=== PATIENT | male | born 1965 | race Caucasian/White ===

== ENCOUNTER 2020-08-28 09:02 | Outpatient (REF) | payer OTHER, SELFPAY ==
[2020-08-28 11:52] LABS: Alanine Aminotransferase 41 U/L (0-40); Albumin Level 4.6 g/dL (3.5-5.0); Alkaline Phosphatase 85 U/L (39-117); Anion Gap 13 (12-20); Aspartate Amino Transferase 29 U/L (5-37); Bilirubin Total 0.3 mg/dL (0.0-1.0); Blood Urea Nitrogen 16 mg/dL (9-16); Calcium 9.9 mg/dL (8.4-10.2); Carbon Dioxide 33 mmol/L (22-29); Chloride 99 mmol/L (96-108); Cholesterol 230 mg/dL; Estimated Glomerular Filt Rate > 60; Glucose Fasting 100 mg/dL (60-99); HDL Cholesterol 42 mg/dL; LDL Cholesterol Calculated 132 mg/dl; Potassium 5.4 mmol/l (3.3-5.1); Sodium 140 mmol/L (135-145); Total Protein 7.9 g/dL (6.5-8.0); Triglycerides 282 mg/dL
== END 2020-08-28 09:03 | disposition home or self-care (01) ==
LOC: HO.LAB 09:02
PROVIDERS: PCP Internal Medicine; Visit Provider Internal Medicine
DX: E78.00 Pure hypercholesterolemia, unspecified (principal)
CPT/HCPCS: 36415; 80053; 80061

== ENCOUNTER 2020-08-29 10:08 | Outpatient (REF) | payer OTHER, SELFPAY | END 2020-08-29 10:09 | disposition home or self-care (01) | LOC: HO.LAB 10:08 | PROVIDERS: PCP Internal Medicine; Visit Provider Internal Medicine | DX: Z20.828 Contact with and (suspected) exposure to other viral communicable diseases (principal) | CPT/HCPCS: 36415; 87635 ==

== ENCOUNTER 2020-11-27 12:09 | Outpatient (REF) | payer OTHER, SELFPAY ==
[2020-11-27 13:12] LABS: MANUAL DIFF FLAG NO
[2020-11-27 13:14] LABS: Basophils Percent Auto 0.4 % (0-2); Eosinophils Absolute Auto 0.1 X10*3/uL (0.0-0.4); Eosinophils Percent Auto 0.5 % (0-4); Hematocrit 45.1 % (42-52); Hemoglobin 14.8 g/dl (14.0-18.0); Imm Gran Abs Auto 0.05 X10*3/uL (0.00-0.03); Imm Gran Pct Auto 0.5 % (0.0-0.4); Lymphocytes Absolute Auto 3.6 X10*3/uL (1.2-4.9); Lymphocytes Percent Auto 33.3 % (20-40); Mean Corpuscular HGB Conc 32.8 g/dl (31.0-36.0); Mean Corpuscular Hemoglobin 28.8 pg (27.0-33.0); Mean Corpuscular Volume 87.7 fL (80-98); Mean Platelet Volume 10.6 fL (9.4-12.4); Monocytes Absolute Auto 0.4 X10*3/uL (0.1-1.2); Monocytes Percent Auto 3.9 % (2-11); Neutrophils Absolute Auto 6.6 X10*3/uL (2.0-8.3); Neutrophils Percent Auto 61.4 % (45-73); Platelet Count 296 X10*3/uL (160-400); Red Blood Count 5.14 X10*6/uL (4.60-5.80); Red Cell Distribution Width 13.7 % (11.0-16.0); White Blood Count 10.8 X10*3/uL (4.8-10.8)
[2020-11-27 14:08] LABS: Alanine Aminotransferase 29 U/L (0-40); Albumin Level 4.5 g/dL (3.5-5.0); Alkaline Phosphatase 87 U/L (39-117); Anion Gap 17 (12-20); Aspartate Amino Transferase 25 U/L (5-37); Bilirubin Total 0.3 mg/dL (0.0-1.0); Blood Urea Nitrogen 18 mg/dL (9-16); Calcium 10.2 mg/dL (8.4-10.2); Carbon Dioxide 31 mmol/L (22-29); Chloride 101 mmol/L (96-108); Cholesterol 249 mg/dL; Estimated Glomerular Filt Rate > 60; Glucose Fasting 89 mg/dL (60-99); HDL Cholesterol 44 mg/dL; LDL Cholesterol Calculated 157 mg/dl; Potassium 5.7 mmol/l (3.3-5.1); Sodium 143 mmol/L (135-145); Triglycerides 244 mg/dL
== END 2020-11-27 12:10 | disposition home or self-care (01) ==
LOC: HO.LAB 12:09
PROVIDERS: PCP Internal Medicine; Visit Provider Internal Medicine
DX: R56.9 Unspecified convulsions (principal); E78.5 Hyperlipidemia, unspecified
CPT/HCPCS: 36415; 80053; 80061; 85025

== ENCOUNTER 2021-03-05 09:38 | Outpatient (REF) | payer OTHER, SELFPAY ==
--- NOTE | 2021-03-05 09:52 | ECG_ITS ---
Test Reason : HYPERKALEMIA Blood Pressure : / mmHG Vent. Rate : 086 BPM Atrial Rate : 086 BPM P-R Int : 148 ms QRS Dur : 112 ms QT Int : 380 ms P-R-T Axes : 068 033 084 degrees QTc Int : 454 ms Normal sinus rhythm Nonspecific ST and T wave abnormality Borderline ECG No significant changes when compared with the previous EKG of 14 march 2020 Referred By: Shirley Ferrara Electronically Signed By:CARMEN YUSUF
[2021-03-05 11:25] LABS: Alanine Aminotransferase 107 U/L (0-40); Albumin Level 4.2 g/dL (3.5-5.0); Alkaline Phosphatase 74 U/L (39-117); Anion Gap 15 (12-20); Aspartate Amino Transferase 69 U/L (5-37); Bilirubin Total 0.4 mg/dL (0.0-1.0); Blood Urea Nitrogen 16 mg/dL (9-16); Calcium 9.6 mg/dL (8.4-10.2); Carbon Dioxide 29 mmol/L (22-29); Chloride 101 mmol/L (96-108); Cholesterol 238 mg/dL; Estimated Glomerular Filt Rate > 60; Glucose Fasting 93 mg/dL (60-99); HDL Cholesterol 51 mg/dL; LDL Cholesterol Calculated 134 mg/dl; Potassium 5.3 mmol/L (3.3-5.1); Sodium 140 mmol/L (135-145); Total Protein 7.3 g/dL (6.5-8.0); Triglycerides 269 mg/dL
== END 2021-03-05 09:39 | disposition home or self-care (01) ==
LOC: HO.LAB 09:38
PROVIDERS: PCP Internal Medicine; Visit Provider Internal Medicine
DX: E87.5 Hyperkalemia (principal); E78.5 Hyperlipidemia, unspecified
CPT/HCPCS: 36415; 80053; 80061; 93005

== ENCOUNTER 2021-03-13 10:58 | Outpatient (REF) | payer OTHER, SELFPAY ==
[2021-03-13 12:00] LABS: MANUAL DIFF FLAG NO
[2021-03-13 12:04] LABS: Basophils Absolute Auto 0.1 X10*3/uL (0.0-0.2); Basophils Percent Auto 0.6 % (0-2); Eosinophils Absolute Auto 0.1 X10*3/uL (0.0-0.4); Eosinophils Percent Auto 0.6 % (0-4); Hematocrit 45.3 % (42-52); Hemoglobin 15.1 g/dl (14.0-18.0); Imm Gran Abs Auto 0.05 X10*3/uL (0.00-0.03); Imm Gran Pct Auto 0.6 % (0.0-0.4); Lymphocytes Percent Auto 37.1 % (20-40); Mean Corpuscular HGB Conc 33.3 g/dl (31.0-36.0); Mean Corpuscular Hemoglobin 29.3 pg (27.0-33.0); Mean Platelet Volume 9.7 fL (9.4-12.4); Monocytes Absolute Auto 0.4 X10*3/uL (0.1-1.2); Monocytes Percent Auto 4.7 % (2-11); Neutrophils Absolute Auto 4.5 X10*3/uL (2.0-8.3); Neutrophils Percent Auto 56.4 % (45-73); Platelet Count 295 X10*3/uL (160-400); Red Blood Count 5.15 X10*6/uL (4.60-5.80); Red Cell Distribution Width 12.7 % (11.0-16.0)
[2021-03-13 12:45] LABS: Alanine Aminotransferase 104 U/L (0-40); Albumin Level 4.6 g/dL (3.5-5.0); Alkaline Phosphatase 86 U/L (39-117); Anion Gap 15 (12-20); Aspartate Amino Transferase 51 U/L (5-37); Bilirubin Total 0.5 mg/dL (0.0-1.0); Blood Urea Nitrogen 18 mg/dL (9-16); Calcium 10.4 mg/dL (8.4-10.2); Carbon Dioxide 28 mmol/L (22-29); Chloride 100 mmol/L (96-108); Estimated Glomerular Filt Rate > 60; Glucose Random 107 mg/dL (60-115); Sodium 138 mmol/L (135-145); Total Protein 7.9 g/dL (6.5-8.0)
[2021-03-13 12:56] LABS: Valproate 34.5 mcg/mL (50.0-100.0)
== END 2021-03-13 10:59 | disposition home or self-care (01) ==
LOC: HO.LAB 10:58
PROVIDERS: PCP Internal Medicine; Visit Provider Nurse Practitioner Psychiatric/Mental Health
DX: R94.31 Abnormal electrocardiogram [ECG] [EKG] (principal)
CPT/HCPCS: 36415; 80053; 80164; 85025

== ENCOUNTER → 2021-11-06 10:05 | Outpatient (REF) | payer OTHER, SELFPAY ==
--- NOTE | 2021-11-06 10:13 | ECG_ITS ---
Test Reason : chest pain Blood Pressure : / mmHG Vent. Rate : 087 BPM Atrial Rate : 087 BPM P-R Int : 136 ms QRS Dur : 114 ms QT Int : 382 ms P-R-T Axes : 055 038 089 degrees QTc Int : 459 ms Normal sinus rhythm Nonspecific T wave abnormality Abnormal ECG When compared with ECG of 05-MAR-2021 09:57, No significant change was found Referred By: Shirley Ferrara Electronically Signed By:GISELA JIMENEZ MD
[2021-11-06 11:03] LABS: Alanine Aminotransferase 66 U/L (0-40); Albumin Level 4.5 g/dL (3.5-5.0); Alkaline Phosphatase 90 U/L (39-117); Anion Gap 15 (12-20); Aspartate Amino Transferase 45 U/L (5-37); Bilirubin Total 0.5 mg/dL (0.0-1.0); Blood Urea Nitrogen 20 mg/dL (9-16); Calcium 9.9 mg/dL (8.4-10.2); Carbon Dioxide 26 mmol/L (22-29); Chloride 103 mmol/L (96-108); Cholesterol 225 mg/dL; Estimated Glomerular Filt Rate > 60; Glucose Fasting 110 mg/dL (60-99); HDL Cholesterol 41 mg/dL; LDL Cholesterol Calculated 138 mg/dl; Potassium 4.1 mmol/L (3.3-5.1); Sodium 140 mmol/L (135-145); Total Protein 7.8 g/dL (6.5-8.0); Triglycerides 231 mg/dL
[2021-11-06 11:17] LABS: Valproate < 2.0 mcg/mL (50.0-100.0)
[2021-11-06 11:21] LABS: HBS Num1 5.32 mIU/mL (0-7.99); HBc Num1 0.07 S/CO (0.00-0.79); HBsAGNum1 0.22 S/CO (0.00-0.99); Hepatitis B Core Antibody Nonreactive (Nonreactive); Hepatitis B Surface Antigen Negative (Negative); ~HepC Num1 0.09 S/CO (0.00-0.79); ~Hepatitis B Surface Antibody NONREACTIVE (Nonreactive); ~Hepatitis C Antibody Nonreactive (Nonreactive)
[2021-11-07 08:18] LABS: ~Hepatitis A Antibody IgM Nonreactive (Nonreactive)
[2021-11-11 06:12] LABS: Amitriptyline, Serum 97 mcg/L; Nortriptyline, Serum 241 mcg/L; Total (Ami+Nor) 338 mcg/L (100-250)
== END ==
LOC: HO.CARD 10:05
PROVIDERS: PCP Internal Medicine; Visit Provider Internal Medicine
DX: Z01.84 Encounter for antibody response examination (principal); R07.9 Chest pain, unspecified; R74.01 Elevation of levels of liver transaminase levels; E78.5 Hyperlipidemia, unspecified; R56.9 Unspecified convulsions; Z79.899 Other long term (current) drug therapy
CPT/HCPCS: 36415; 80053; 80061; 80164; 80335; 86704; 86706; 86709; 86803; 87340; 93005

== ENCOUNTER 2021-11-07 08:45 | Outpatient (REF) | payer OTHER, SELFPAY ==
--- NOTE | ~2021-11-07 | MR_ITS ---
EXAMINATION: MR OF THE BRAIN WITHOUT CONTRAST MR ANGIOGRAPHY BRAIN WITHOUT CONTRAST CLINICAL INFORMATION: 56-year-old with complaints of headaches and right eye blurry vision. Clinical concern: Cerebral aneurysm, nonruptured. COMPARISON: None MR BRAIN TECHNIQUE: Multiplanar multisequence MR imaging of the brain was done without IV contrast. FINDINGS: Brain Volume: Within normal limits. Structural: No malformations. Brain and Meninges: Scattered small subcentimeter zones of FLAIR/T2 signal hyperintensity are noted within the subcortical and deeper white matter of both cerebral hemispheres without restricted diffusion, which are nonspecific findings. DWI sequence demonstrates no restricted diffusion. Specifically, there is no evidence for acute or subacute cerebral ischemia. There is no evidence for hemorrhage, hemosiderin staining, abnormal mineral deposition, or extra-axial fluid collection. The remainder of the brain is normal in signal intensity. Ventricles and Subarachnoid Spaces: The ventricular system and subarachnoid spaces are within normal limits. There is no hydrocephalus. Orbital Structures: The visualized orbital structures are grossly unremarkable within the limitations of the study. Vascular: Signal voids are noted in the visualized major intracranial vessels. Sinuses and Osseous Structures: Minor mucosal thickening in the ethmoid complex with nasal septal deviation to the left and a probable small retention cyst in the sphenoid sinus on the right. Osseous marrow signal intensity appears within normal limits. Prominent adenoids are noted, with a mildly enlarged lateral retropharyngeal lymph node on the right. Recommend correlation with direct visualization. MR/MR angio head wo con IMPRESSION: 1. Scattered nonspecific white matter T2 hyperintensities in the cerebral hemispheres are noted. Differential diagnostic considerations could include, but are not limited to, migraine-associated vasculopathy and chronic ischemic microangiopathy. 2. No evidence for hemorrhage, extra-axial fluid collection, space-occupying process, mass effect, or hydrocephalus. 3. Prominent adenoids with a mildly prominent right lateral retropharyngeal lymph node. Followup clinically. MRA BRAIN TECHNIQUE: 3-D [id number] MR angiography of the intracranial circulation was done. FINDINGS: The intracranial internal carotid arteries are normal in caliber and smoothly contoured. The A1 and A2 segments are normal in caliber and demonstrate normal flow-related enhancement with a normal appearance to the anterior communicating artery. The M1 segments are normal in caliber bilaterally with a normal appearance to the MCA bifurcation on the right and left MCA trifurcation, with normal-appearing M2 branches. The intradural vertebral arteries are patent and normal in caliber. The posterior inferior cerebellar artery is visualized on the left and appears normal with a normal-appearing right anterior inferior cerebellar artery. The basilar artery is normal in caliber and smoothly contoured with a normal appearance to the basilar tip. Note is made of a 3.7 x 2.4 x 2.1 mm saccular aneurysm arising from the distal basilar artery adjacent to the origin of the right superior cerebellar artery, projecting posterolaterally to the right and slightly superiorly into the interpeduncular cistern on the right. The posterior cerebral arteries are patent and normal in caliber. The posterior communicating arteries are not well visualized. IMPRESSION: 1. 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 2. No other intracranial aneurysms are identified, and there are no high-flow vascular malformations.
== END 2021-11-07 08:46 | disposition home or self-care (01) ==
LOC: HO.MRI 08:45
PROVIDERS: PCP Internal Medicine; Visit Provider Internal Medicine
DX: I67.1 Cerebral aneurysm, nonruptured (principal); G40.89 Other seizures
CPT/HCPCS: 70544; 70551

== ENCOUNTER 2021-12-18 09:57 | Outpatient (REF) | payer OTHER, SELFPAY | END 2021-12-18 09:58 | disposition home or self-care (01) | LOC: HO.US 09:57 | PROVIDERS: Visit Provider Internal Medicine Medical Oncology | DX: Z13.89 Encounter for screening for other disorder (principal) ==

== ENCOUNTER 2022-01-17 08:40 | Outpatient (RCR) | payer OTHER, SELFPAY ==
[2021-11-14 09:39] VITALS: BP 127/69; PULSE 88; RESP 16; TEMP 36.3; O2SAT 95; BMI 28.4
--- NOTE | 2021-11-14 09:42 | P.CNHO_ITS ---
Subjective - Subjective Chief complaint: Consult for: Cervical adenopathy. Patient: new to practice Consult date: 11/14/21 Primary Care Provider: Shirley Ferrara MD Medical Summary: DIAGNOSIS: CERVICAL LYMPHADENOPATHY. HPI - Consult Narrative Reason for consult: Consult for: Adenopathy. Narrative: Hemant Navas is a pleasant 56 year old gentleman who had a physical done by his primary. She noted some cervical adenopathy. He has been referred here for further evaluation. ROS: He does complain of feeling tired. No fever nor chills. Appetite is increased. He has gained weight. He gets headaches a he thinks there migraine. He Has dizziness. He denies any chest pain or trouble breathing. No cough no sputum. He has no abdominal pain nausea vomiting heartburn indigestion. Bowels are working without any gross blood in it. Denies dysuria or hematuria. He does get bone pain. He denies any focal weakness. He has depression. No skin rashes or pruritus. FAMILY HISTORY: His mom has circulatory issues she has a prosthetic right leg. An uncle had lung cancer. No known blood disorder in the family. 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 Currently unemployed. He is not . Has no children. He smokes 15 cigarettes a day. He denies alcohol. Review of Systems - Constitutional Reports system reviewed and no additional complaints, except as documented, Reports fatigue, Reports lack of energy, Reports malaise, Denies fever(s), Denies weight loss - Eyes Reports system reviewed and no additional complaints, except as documented - ENT Reports system reviewed and no additional complaints, except as documented - Cardiovascular Reports system reviewed and no additional complaints, except as documented - Respiratory Reports no additional respiratory complaints - Gastrointestinal Reports system reviewed and no additional complaints, except as documented - Genitourinary Genitourinary: Reports no additional male genitourinary complaints - Musculoskeletal Reports system reviewed and no additional complaints, except as documented - Integumentary/Breasts Skin/Breast: Reports no additional skin complaints - Neurologic Reports system reviewed and no additional complaints, except as documented - Psychiatric Reports system reviewed and no additional complaints, except as documented - Endocrine Reports no additional endocrine complaints - Hematologic/Lymphatic Reports system reviewed and no additional complaints, except as documented - Allergic/Immunologic Reports system reviewed and no additional complaints, except as documented Oncology Screenings - ECOG Performance Status ECOG Performance Status: 0 [facility] Medical History: Medical History (Last Reviewed 11/14/21 @ 09:44 by Orquidea Hardin) Brain aneurysm Dyslipidemia ALEA (generalized anxiety disorder) History of heroin use Hyperkalemia Lumbar pain Lymphadenopathy Methadone use Mild asthma Mild recurrent major depression Physical exam Prolonged QT interval Right hip pain Seizures Transaminitis Functional capacity: independent ambulation Patient : No Family History: Family History (Last Reviewed 11/14/21 @ 09:44 by Orquidea Hardin) Father Emphysema lung Mother Asthma Brother Leukemia Maternal Uncle Myocardial infarction Sister No problems noted. Family/Other Mental health disorder Surgical History: Surgical History (Last Reviewed 11/14/21 @ 09:44 by Orquidea Hardin) History of knee surgery Social History: Social History (Last Updated 11/14/21 @ 09:44 by Orquidea Hardin) Living Situation History: Housing: Apartment Tobacco History: Patient Tobacco Use Status: Current everyday Tobacco Tobacco use type: Cigarette Cigarette Packs Per Day: 1 e-Cigarette/Vaping Use: Never Used Second Hand Smoke Exposure: No Substance Use History: Use of substances other than those prescribed or required for medical reasons : No Nutrition Assessment: Patient : No Occupation Assessmet: service: No Current occupational status: disabled Home Medications and Allergies Home Medications Medication Instructions Recorded Confirmed Type divalproex 500 mg tablet,extended 1,000 mg PO BEDTIME 11/02/20 11/14/21 History release 24 hr methadone 10 mg/5 mL oral solution 50 mg PO DAILY ml 08/08/21 11/14/21 History Allergies Allergy/AdvReac Type Severity Reaction Status Date / Time No Known Allergies Allergy Verified 11/14/21 09:44 [No Known Allergies*] Physical Exam - Constitutional Present: no acute distress - Routine HEENT Exam Head: Present: normal inspection ENT: Present: mucous membranes moist - Routine Neck Exam Present: supple - Routine Respiratory Exam Present: CTAB - Routine Cardiovascular Exam Cardiovascular: Present: RRR, S1, S2 - Routine Abdominal Exam Present: normal bowel sounds, soft, nontender - Routine Extremities Exam Present: nontender - Routine Skin Exam Present: intact, normal turgor - Routine Neurological Exam Present: alert, oriented X3 - Detailed Neurological Exam: Coma Scale Eye Opening: Spontaneous (4) Verbal Response: Oriented (5) Motor Response: Obeys commands (6) [place] Coma Scale Total: 15 - Routine Psychiatric Exam Present: normal affect Hem/Onc Consult Result - Labs CBC & Chem 7: 11/14/21 10:21 11/14/21 10:21 Assessment and Plan Patient Active problem list reviewed?: Yes (1) Cervical adenopathy Status: Acute Assessment and plan: 56-year-old gentleman with a recent finding of cervical adenopathy. The lymph nodes are not very prominent. DIFFERENTIAL DIAGNOSIS: 1. REACTIVE: Could be from an infection or inflammatory. 2. MALIGNANT ADENOPATHY: Hodgkin's versus non-Hodgkin's lymphoma. PLAN: Will proceed with further evaluation. Will get a Monospot to look for any viral infectious process: Negative. Check HIV and hepatitis profiles: All negative. He is scheduled for ultrasound of the neck to evaluate the characteristics of the nodes. In the meantime I will get baseline labs including CBC and LDH. He will return in 1 month for a follow-up visit. Will take it from there. Thank you, Cc: Dr. Armstrong. - Time Spent With Patient Time Spent with Patient (in minutes): 35
[2021-11-14 10:24] LABS: MANUAL DIFF FLAG NO
[2021-11-14 10:31] LABS: Basophils Percent Auto 0.5 % (0-2); Eosinophils Absolute Auto 0.1 X10*3/uL (0.0-0.4); Hematocrit 41.8 % (42.0-52.0); Hemoglobin 14.2 g/dl (14.0-18.0); Imm Gran Abs Auto 0.02 X10*3/uL (0.00-0.03); Imm Gran Pct Auto 0.3 % (0.0-0.4); Lymphocytes Absolute Auto 2.7 X10*3/uL (1.2-4.9); Lymphocytes Percent Auto 43.5 % (20-40); Mean Corpuscular Hemoglobin 29.2 pg (27.0-33.0); Mean Corpuscular Volume 85.8 fL (80.0-98.0); Mean Platelet Volume 10.1 fL (9.4-12.4); Monocytes Absolute Auto 0.5 X10*3/uL (0.1-1.2); Monocytes Percent Auto 7.2 % (2-11); Neutrophils Percent Auto 47.5 % (45-73); Platelet Count 237 X10*3/uL (160-400); Red Blood Count 4.87 X10*6/uL (4.60-5.80); Red Cell Distribution Width 13.5 % (11.0-16.0); White Blood Count 6.3 X10*3/uL (4.8-10.8)
[2021-11-14 10:47] LABS: Alanine Aminotransferase 46 U/L (0-40); Albumin Level 4.1 g/dL (3.5-5.0); Alkaline Phosphatase 89 U/L (39-117); Anion Gap 13 (12-20); Aspartate Amino Transferase 33 U/L (5-37); Bilirubin Total 0.4 mg/dL (0.0-1.0); Blood Urea Nitrogen 16 mg/dL (9-16); Carbon Dioxide 29 mmol/L (22-29); Chloride 102 mmol/L (96-108); Creatinine Clr Calc Pharmacy 116.8; Estimated Glomerular Filt Rate > 60; Glucose Random 101 mg/dL (60-115); Lactate Dehydrogenase 194 U/L (118-273); Potassium 4.5 mmol/L (3.3-5.1); Sodium 139 mmol/L (135-145); Total Protein 7.3 g/dL (6.5-8.0)
[2021-11-14 11:09] LABS: HBS Num1 0.44 mIU/mL (0-7.99); HIV AB/AG Nonreactive (Nonreactive); HIV Num 1 0.06 S/CO (0.00-0.99); Hepatitis B Core Antibody Nonreactive (Nonreactive); ~Hepatitis B Surface Antibody NONREACTIVE (Nonreactive); ~Hepatitis C Antibody Nonreactive (Nonreactive)
[2021-11-14 11:10] LABS: Hepatitis B Surface Antigen Negative (Negative)
[2021-11-14 11:16] LABS: Monotest Negative (Negative)
--- NOTE | 2021-12-13 14:46 | MHC.HEMONC ---
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
--- NOTE | 2021-12-14 14:49 | MHC.HEMONC ---
Dr. Byers asked this nurse to investigate why this pt's ordered U/S of soft tissue, Head and Neck, was never scheduled since being booked on 12/02/21. Nurse printed order, presented it to Master Scheduler Henny for entry into order oyster cultivator, and she replied, it was already in the works. Dr. Byers was updated, asked that it be booked for this coming Friday or as soon as possible. Nurse informed Henny.
--- NOTE | 2021-12-17 08:16 | P.PNHO_ITS ---
Medical Summary - Medical Summary Date of Service: 12/17/21 Chief complaint: Follow-up for: Cervical adenopathy. Medical Summary: DIAGNOSIS: CERVICAL LYMPHADENOPATHY. Interval History Interval history: Hemant Navas is a pleasant 56 year old gentleman, here for a follow-up visit. He does complain of feeling tired. No fever nor chills. Appetite is increased. He has gained weight. He gets headaches a he thinks there migraine. He Has dizziness. He denies any chest pain or trouble breathing. No cough no sputum. He has no abdominal pain nausea vomiting heartburn indigestion. Bowels are working without any gross blood in it. Denies dysuria or hematuria. He does get bone pain. He denies any focal weakness. He has depression. No skin rashes or pruritus. Previous history: He had a physical done by his primary. She noted some cervical adenopathy. He was referred here for further evaluat ion. FAMILY HISTORY: His mom has circulatory issues she has a prosthetic right leg. An uncle had lung cancer. No known blood disorder in the family. 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 Currently unemployed. He is not . Has no children. He smokes 15 cigarettes a day. He denies alcohol. Review of Systems - Constitutional Reports system reviewed and no additional complaints, except as documented - Eyes Reports system reviewed and no additional complaints, except as documented - ENT Reports system reviewed and no additional complaints, except as documented - Cardiovascular Reports system reviewed and no additional complaints, except as documented - Respiratory Reports no additional respiratory complaints - Gastrointestinal Reports system reviewed and no additional complaints, except as documented - Genitourinary Genitourinary: Reports no additional male genitourinary complaints - Musculoskeletal Reports system reviewed and no additional complaints, except as documented - Integumentary/Breasts Skin/Breast: Reports no additional skin complaints - Neurologic Reports system reviewed and no additional complaints, except as documented - Psychiatric Reports system reviewed and no additional complaints, except as documented - Endocrine Reports no additional endocrine complaints - Hematologic/Lymphatic Reports system reviewed and no additional complaints, except as documented - Allergic/Immunologic Reports system reviewed and no additional complaints, except as documented PMF Medical History: Medical History (Last Reviewed 12/26/21 @ 11:05 by Shirley Ferrara MD) Brain aneurysm Dyslipidemia ALEA (generalized anxiety disorder) History of heroin use Hyperkalemia Lumbar pain Lymphadenopathy Methadone use Mild asthma Mild recurrent major depression Physical exam Prolonged QT interval Right hip pain Saccular aneurysm Seizures Transaminitis Functional capacity: independent ambulation Patient : No Family History: Family History (Last Reviewed 12/26/21 @ 10:38 by SAL Stubbs) Father Emphysema lung Mother Asthma Brother Leukemia Maternal Uncle Myocardial infarction Sister No problems noted. Family/Other Mental health disorder Surgical History: Surgical History (Last Reviewed 12/26/21 @ 10:38 by SAL Stubbs) History of knee surgery Social History: Social History (Last Updated 12/26/21 @ 11:07 by Shirley Ferrara MD) Living Situation History: Housing: Apartment Tobacco History: Patient Tobacco Use Status: Current everyday Tobacco Tobacco use type: Cigarette Cigarette Packs Per Day: 1 e-Cigarette/Vaping Use: Never Used Second Hand Smoke Exposure: No Occupation Assessmet: service: No Current occupational status: disabled Oncology Screenings - ECOG Performance Status ECOG Performance Status: 0 Home Medications and Allergies Home Medications Medication Instructions Recorded Confirmed Type methadone 10 mg/5 mL oral 50 mg PO DAILY ml 08/08/21 12/26/21 History solution hydroxyzine pamoate 50 mg 50 mg PO DAILY PRN 12/17/21 12/26/21 History capsule Allergies Allergy/AdvReac Type Severity Reaction Status Date / Time No Known Allergies Allergy Verified 12/26/21 11:03 [No Known Allergies*] Exam Vital signs: Vital Signs Temp 97.4 F 11/14/21 09:39 Pulse 88 11/14/21 09:39 Resp 16 11/14/21 09:39 BP 127/69 11/14/21 09:39 Pulse Ox 95 11/14/21 09:39 Weight 92.4 kg BMI result [facility]onel 4Bd Body Mass Index [facility] 4d 28.4 - Constitutional Present: no acute distress - Routine HEENT Exam Head: Present: normal inspection Eye: Present: normal appearance ENT: Present: mucous membranes moist - Routine Neck Exam Present: full ROM - Routine Respiratory Exam Present: CTAB - Routine Cardiovascular Exam Cardiovascular: Present: RRR, S1, S2 - Routine Abdominal Exam Present: normal bowel sounds, soft, nontender - Routine Extremities Exam Present: nontender - Routine Back/Spine/Pelvis Exam Back/Spine: Present: full ROM - Routine Skin Exam Present: intact, normal turgor - Routine Neurological Exam Present: alert, oriented X3 - Detailed Neurological Exam: Coma Scale Eye Opening: Spontaneous (4) - Routine Psychiatric Exam Present: normal affect Data - Labs CBC & Chem 7: 11/14/21 10:21 11/14/21 10:21 Labs: 11/14/21 10:21 Complete Blood Count Auto Diff Stat Comprehensive Met. Panel Stat HIV Ab/Ag Routine Hepatitis B,C Profile Routine Lactate Dehydrogenase Routine Monospot [Monotest] Routine Laboratory Last Values WBC 6.3 X10*3/uL (4.8-10.8) 11/14/21 10:21 RBC 4.87 X10*6/uL (4.60-5.80) 11/14/21 10:21 Hgb 14.2 g/dl (14.0-18.0) 11/14/21 10:21 Hct 41.8 % (42.0-52.0) L 11/14/21 10:21 MCV 85.8 fL (80.0-98.0) 11/14/21 10:21 MCH 29.2 pg (27.0-33.0) 11/14/21 10:21 MCHC 34.0 g/dl (31.0-36.0) 11/14/21 10:21 RDW 13.5 % (11.0-16.0) 11/14/21 10:21 Plt Count 237 X10*3/uL (160-400) 11/14/21 10:21 MPV 10.1 fL (9.4-12.4) 11/14/21 10:21 Immature Gran % (Auto) 0.3 % (0.0-0.4) 11/14/21 10:21 Neut % (Auto) 47.5 % (45-73) 11/14/21 10:21 Lymph % (Auto) 43.5 % (20-40) H 11/14/21 10:21 Young % (Auto) 7.2 % (2-11) 11/14/21 10:21 Eos % (Auto) 1.0 % (0-4) 11/14/21 10:21 Baso % (Auto) 0.5 % (0-2) 11/14/21 10:21 Lymph # (Auto) 2.7 X10*3/uL (1.2-4.9) 11/14/21 10:21 Young # (Auto) 0.5 X10*3/uL (0.1-1.2) 11/14/21 10:21 Eos # (Auto) 0.1 X10*3/uL (0.0-0.4) 11/14/21 10:21 Baso # (Auto) 0.0 X10*3/uL (0.0-0.2) 11/14/21 10:21 Abs Immat Gran (auto) 0.02 X10*3/uL (0.00-0.03) 11/14/21 10:21 Absolute Neuts (auto) 3.0 x10*3/uL (2.0-8.3) 11/14/21 10:21 Absolute Nucleated RBC 0.000 X10*3/uL (0.0-0.012) 11/14/21 10:21 Nucleated RBC % (auto) 0.0 /100WBC (0.0-0.2) 11/14/21 10:21 Sodium 139 mmol/L (135-145) 11/14/21 10:21 Potassium 4.5 mmol/L (3.3-5.1) 11/14/21 10:21 Chloride 102 mmol/L (96-108) 11/14/21 10:21 Carbon Dioxide 29 mmol/L (22-29) 11/14/21 10:21 Anion Gap 13 (12-20) 11/14/21 10:21 BUN 16 mg/dL (9-16) 11/14/21 10:21 Creatinine 0.83 mg/dL (0.5-1.4) 11/14/21 10:21 Estim Creat Clear Calc 116.8 11/14/21 10:21 Estimated GFR > 60 11/14/21 10:21 Random Glucose 101 mg/dL (60-115) 11/14/21 10:21 Calcium 10.0 mg/dL (8.4-10.2) 11/14/21 10:21 Total Bilirubin 0.4 mg/dL (0.0-1.0) 11/14/21 10:21 AST 33 U/L (5-37) 11/14/21 10:21 ALT 46 U/L (0-40) H 11/14/21 10:21 Alkaline Phosphatase 89 U/L (39-117) 11/14/21 10:21 Lactate Dehydrogenase 194 U/L (118-273) 11/14/21 10:21 Total Protein 7.3 g/dL (6.5-8.0) 11/14/21 10:21 Albumin 4.1 g/dL (3.5-5.0) 11/14/21 10:21 Hep Bs Antigen Negative (Negative) 11/14/21 10:21 Hep Bs Antibody NONREACTIVE (Nonreactive) 11/14/21 10:21 Hep B Core Total Ab Nonreactive (Nonreactive) 11/14/21 10:21 Hepatitis C Ab (EIA) Nonreactive (Nonreactive) 11/14/21 10:21 Monoscreen Negative (Negative) 11/14/21 10:21 HIV 1&2 Ab/P24 Ag 4thGn Nonreactive (Nonreactive) 11/14/21 10:21 Assessment and Plan Patient Active problem list reviewed?: Yes (1) Cervical adenopathy Status: Acute Assessment and plan: 56-year-old gentleman with a recent finding of cervical adenopathy. The lymph nodes are not very prominent. DIFFERENTIAL DIAGNOSIS: 1. REACTIVE: Could be from an infection or inflammatory. 2. MALIGNANT ADENOPATHY: Hodgkin's versus non-Hodgkin's lymphoma. l checked a Monospot to look for any viral infectious process: Negative. Checked HIV and hepatitis profiles: All negative. PLAN: Will proceed with further evaluation. He was scheduled for ultrasound of the neck to evaluate the characteristics of the nodes, tomorrow. However upon talking to the radiologist given that the node is retropharyngeal, a CT scan appears more of an appropriate study to follow it up. In the meantime I will get baseline labs including CBC and LDH: 194. He will return in 1 month for a follow-up visit. Will take it from there. Thank you, Cc: Dr. Armstrong. - Time Spent With Patient Time Spent with Patient (in minutes): 25
[2021-12-17 08:33] VITALS: BP 119/76; PULSE 99; RESP 20; TEMP 36.7; O2SAT 95
[2021-12-17 08:35] VITALS: BMI 28.6
--- NOTE | 2021-12-17 15:48 | MHC.HEMONC ---
Here for follow up with Dr Byers. Engine Room Helper Sharon present for assessment. States is feeling well, with no c/o. Has appointment scheduled for US tomorrow at 1030. Pt aware. Dr Byers in to see pt. Follow up scheduled for 1 month.
[2022-01-17 08:27] VITALS: BP 138/79; PULSE 93; RESP 16; TEMP 36.5; O2SAT 97; BMI 29.0
--- NOTE | 2022-01-17 08:57 | PM.HEMONCPN ---
Medical Summary - Medical Summary Date of Service: 01/17/22 Chief complaint: Follow-up for: Cervical adenopathy. Medical Summary: DIAGNOSIS: CERVICAL LYMPHADENOPATHY. Interval History Interval history: Hemant Navas is a pleasant 56 year old gentleman, here for a follow-up visit. Overall he is feeling well. However he does have trouble sleeping since he was taken off the Depakote and Elavil was decreased to 100 mg from 150 mg. He on disc sleeps 1-2 hours. He has to see the psychiatrist. Currently he is under the care of her therapist from [facility]. He does complain of feeling tired. No fever nor chills. Appetite is increased. He has gained weight. He gets headaches, he thinks there migraine. He has dizziness. He denies any chest pain or trouble breathing. No cough no sputum. He has no abdominal pain nausea vomiting heartburn indigestion. Bowels are working without any gross blood in it. Denies dysuria or hematuria. He does get bone pain. He denies any focal weakness. He has depression. No skin rashes or pruritus. Previous history: He had a physical done by his primary. She noted some cervical adenopathy. He was referred here for further evaluation. FAMILY HISTORY: His mom has circulatory issues she has a prosthetic right leg. An uncle had lung cancer. No known blood disorder in the family. 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 Currently unemployed. He is not . Has no children. He smokes 15 cigarettes a day. He denies alcohol. Review of Systems - Constitutional Reports system reviewed and no additional complaints, except as documented - Eyes Reports system reviewed and no additional complaints, except as documented - ENT Reports system reviewed and no additional complaints, except as documented - Cardiovascular Reports system reviewed and no additional complaints, except as documented - Respiratory Reports no additional respiratory complaints - Gastrointestinal Reports system reviewed and no additional complaints, except as documented - Genitourinary Genitourinary: Reports no additional male genitourinary complaints - Musculoskeletal Reports system reviewed and no additional complaints, except as documented - Integumentary/Breasts Skin/Breast: Reports no additional skin complaints - Neurologic Reports system reviewed and no additional complaints, except as documented - Psychiatric Reports system reviewed and no additional complaints, except as documented - Endocrine Reports no additional endocrine complaints - Hematologic/Lymphatic Reports system reviewed and no additional complaints, except as documented - Allergic/Immunologic Reports system reviewed and no additional complaints, except as documented [facility] Medical History: Medical History (Last Reviewed 01/17/22 @ 08:31 by Deanna Eastman CMA) Brain aneurysm Dyslipidemia ALEA (generalized anxiety disorder) History of heroin use Hyperkalemia Lumbar pain Lymphadenopathy Methadone use Mild asthma Mild recurrent major depression Physical exam Prolonged QT interval Right hip pain Saccular aneurysm Seizures Transaminitis Functional capacity: independent ambulation Patient : No Family History: Family History (Last Reviewed 01/17/22 @ 08:31 by Deanna Eastman CMA) Father Emphysema lung Mother Asthma Brother Leukemia Maternal Uncle Myocardial infarction Sister No problems noted. Family/Other Mental health disorder Surgical History: Surgical History (Last Reviewed 01/17/22 @ 08:31 by Deanna Eastman CMA) History of knee surgery Social History: Social History (Last Updated 01/17/22 @ 08:32 by Deanna Eastman CMA) Living Situation History: Household Members: None Housing: Apartment Are you a primary physician assistant primary care to a significant other at home: No Do you presently have visiting nurse or other home services: No Tobacco History: Patient Tobacco Use Status: Current everyday Tobacco Tobacco use type: Cigarette e-Cigarette/Vaping Use: Never Used Second Hand Smoke Exposure: No Occupation Assessmet: service: No Current occupational status: disabled Oncology Screenings - ECOG Performance Status ECOG Performance Status: 0 Home Medications and Allergies Home Medications Medication Instructions Recorded Confirmed Type methadone 10 mg/5 mL oral solution 50 mg PO DAILY ml 08/08/21 01/17/22 History hydroxyzine pamoate 50 mg capsule 50 mg PO DAILY PRN 12/17/21 01/17/22 History Allergies Allergy/AdvReac Type Severity Reaction Status Date / Time No Known Allergies Allergy Verified 01/17/22 08:33 [No Known Allergies*] Exam Vital signs: Vital Signs Temp 97.7 F 01/17/22 08:27 Pulse 93 01/17/22 08:27 Resp 16 01/17/22 08:27 BP 138/79 01/17/22 08:27 Pulse Ox 97 01/17/22 08:27 Intake & Output 01/16/22 01/17/22 01/17/22 18:59 06:59 18:59 Other: Weight 94.6 kg Weight in Grams 58595 Weight 94.6 kg BMI result Body Mass Index 29.0 - Constitutional Present: no acute distress - Routine HEENT Exam Head: Present: normal inspection Eye: Present: normal appearance ENT: Present: mucous membranes moist - Routine Neck Exam Present: full ROM - Routine Respiratory Exam Present: CTAB - Routine Cardiovascular Exam Cardiovascular: Present: RRR, S1, S2 - Routine Abdominal Exam Present: normal bowel sounds, soft, nontender - Routine Extremities Exam Present: nontender - Routine Back/Spine/Pelvis Exam Back/Spine: Present: full ROM - Routine Skin Exam Present: intact, normal turgor - Routine Neurological Exam Present: alert, oriented X3 - Detailed Neurological Exam: Coma Scale Eye Opening: Spontaneous (4) - Routine Psychiatric Exam Present: normal affect Data - Labs CBC & Chem 7: 11/14/21 10:21 01/17/22 08:08 Assessment and Plan Patient Active problem list reviewed?: Yes (1) Cervical adenopathy Status: Acute Assessment and plan: 56-year-old gentleman with a recent finding of cervical adenopathy. The lymph nodes are not very prominent. DIFFERENTIAL DIAGNOSIS: 1. REACTIVE: Could be from an infection or inflammatory. 2. MALIGNANT ADENOPATHY: Hodgkin's versus non-Hodgkin's lymphoma. l checked a Monospot to look for any viral infectious process: Negative. Checked HIV and hepatitis profiles: All negative. I had requested a CT scan of his soft tissues of head and neck area. PLAN: He is scheduled for a CT scan of the head and neck area to follow-up on the retro pharyngeal nodes. Had it done on 01/21 and revealed: - Stable soft tissue prominence of the adenoid tonsils. Enlarged right greater than left lateral retropharyngeal lymph nodes are also again noted. PET/CT advised to exclude a nasopharyngeal carcinoma with associated metastatic lymphadenopathy or lymphoma. There are nonpathologic size criteria lymph nodes throughout the remainder of the suprahyoid and infrahyoid neck bilaterally that are nonspecific. - Eek tonsils are enlarged bilaterally and there are multiple calcified tonsilloliths bilaterally. - A 3.7 mm saccular aneurysm projecting posterolaterally from the basilar artery tip is better demonstrated on the prior MRA of the head. PLAN: Will proceed with PET scan for further evaluation. In the meantime I will get baseline labs including CBC and LDH: 194. He will return in 2 weeks for a follow-up visit. Thank you, Cc: Dr. Armstrong. - Time Spent With Patient Time Spent with Patient (in minutes): 30
[2022-01-17 09:05] LABS: Alanine Aminotransferase 28 U/L (0-40); Albumin Level 4.5 g/dL (3.5-5.0); Alkaline Phosphatase 78 U/L (39-117); Anion Gap 13 (12-20); Aspartate Amino Transferase 24 U/L (5-37); Bilirubin Total 0.4 mg/dL (0.0-1.0); Blood Urea Nitrogen 17 mg/dL (9-16); Calcium 10.4 mg/dL (8.4-10.2); Carbon Dioxide 34 mmol/L (22-29); Chloride 99 mmol/L (96-108); Estimated Glomerular Filt Rate > 60; Glucose Random 107 mg/dL (60-115); Lactate Dehydrogenase 212 U/L (118-273); Potassium 4.5 mmol/L (3.3-5.1); Sodium 141 mmol/L (135-145); Total Protein 7.8 g/dL (6.5-8.0)
--- NOTE | 2022-01-17 11:36 | MHC.HEMONCMA ---
Patient was in for follow up. Clinical summary reviewed and updated,VSS. Patient will return in 2 weeks.
--- NOTE | 2022-01-29 13:40 | HO.HEMONCPA ---
PA IS REQUIRED FOR PET CT , I SENT IN CLINICAL INFORMATION TO [facility] , AWAITING APPROVAL . CASE#[id number]
--- NOTE | 2022-01-31 11:08 | HO.HEMONCSCH ---
LM for pt letting him know he missed apt on 01/31/22, N/S letter mailed.
--- NOTE | 2022-02-04 10:17 | HO.HEMONCPA ---
PA FOR PET CT WAS DENIED , I'M GOING TO SHOW DOCTOR THE DENIAL LETTER AND SEE HOW SHE WANTS TO PROCEED .
--- NOTE | 2022-02-04 14:47 | MHC.HEMONC ---
Faxed notes to [facility] for consult. They will review and schedule pt according to urgency.
--- NOTE | 2022-02-05 10:10 | HO.HEMONCPA ---
f/u from Provider on denied PET/CT scan request- Pt referred to [facility] for a biopsy.
--- NOTE | 2022-02-06 08:37 | MHC.HEMONC ---
I have been calling pt for two days trying to reach him re: appt with ENT tomorrow. He has not answered. Bharati tried in Hebrew. I called multiple Providers and Pharmacy to double check my numbers.
--- NOTE | 2022-02-11 11:47 | MHC.HEMONC ---
Pt no show for ENT appt. Nobody has been able to reach him. I have will our office contact him by mail.
== END 2022-01-22 | disposition home or self-care (01) ==
LOC: HO.ONC 08:40
PROVIDERS: PCP Internal Medicine; Referring Provider Internal Medicine; Visit Provider Internal Medicine Medical Oncology
DX: R59.0 Localized enlarged lymph nodes (principal); F17.210 Nicotine dependence, cigarettes, uncomplicated
CPT/HCPCS: 36415; 80053; 83615; 85025; 86308; 86704; 86706; 86803; 87340; 87389; 99204; 99213; 99214

== ENCOUNTER 2022-01-21 08:10 | Outpatient (REF) | payer OTHER, SELFPAY ==
--- NOTE | ~2022-01-21 | CT_ITS ---
CT SOFT TISSUE NECK WITH CONTRAST CLINICAL INFORMATION: Retropharyngeal lymph node on MRI. COMPARISON: Brain MRI 11/07/2021. TECHNIQUE: Following the intravenous administration of 100 mL of Omnipaque 350 intravenous contrast, helical imaging was performed in the axial plane with generation of coronal and sagittal reformatted images. This CT examination was performed using dose optimization techniques as appropriate, variously including the following: *Automated exposure control *Adjustment of mA and/or kV according to patient size (this includes techniques or standardized protocols for targeted exams where dose is matched to indication/reason for exam; i.e. extremities or head) *Use of iterative reconstruction technique FINDINGS: Stable soft tissue prominence of the adenoid tonsils. Enlarged right greater than left lateral retropharyngeal lymph nodes are also again noted. PET/CT advised to exclude a nasopharyngeal carcinoma with associated metastatic lymphadenopathy or lymphoma. There are nonpathologic size criteria lymph nodes throughout the remainder of the suprahyoid and infrahyoid neck bilaterally that are nonspecific. Amalia tonsils are enlarged bilaterally and there are multiple calcified tonsilloliths bilaterally. The parotid glands are homogeneous in attenuation. The submandibular glands are normal. The thyroid gland is normal. No retropharyngeal fluid collection is seen. The laryngeal structures are normal. The parapharyngeal fat is preserved. The carotid sheath vasculature opacify normally. The superior mediastinum is unremarkable. The lung apices are clear. The mastoid air cells and visualized portions of the paranasal sinuses are well-aerated. There is multilevel cervical spondylosis. There are no suspicious intraosseous lesions. A 3.7 mm saccular aneurysm projecting posterolaterally from the basilar artery tip is better demonstrated on the prior MRA of the head. CT/CT soft tissue neck w con IMPRESSION: - Stable soft tissue prominence of the adenoid tonsils. Enlarged right greater than left lateral retropharyngeal lymph nodes are also again noted. PET/CT advised to exclude a nasopharyngeal carcinoma with associated metastatic lymphadenopathy or lymphoma. There are nonpathologic size criteria lymph nodes throughout the remainder of the suprahyoid and infrahyoid neck bilaterally that are nonspecific. - Amalia tonsils are enlarged bilaterally and there are multiple calcified tonsilloliths bilaterally. - A 3.7 mm saccular aneurysm projecting posterolaterally from the basilar artery tip is better demonstrated on the prior MRA of the head.
--- NOTE | ~2022-01-21 | CT_ITS ---
EXAMINATION: CT HEAD WITHOUT CONTRAST CLINICAL INFORMATION: Unspecified convulsions. COMPARISON: None TECHNIQUE: Contiguous axial imaging was performed from the skull base to vertex without intravenous administration of contrast. This CT examination was performed using dose optimization techniques as appropriate, variously including the following: *Automated exposure control. *Adjustment of mA and/or kV according to patient size (this includes techniques or standardized protocols for targeted exams where dose is matched to indication/reason for exam; i.e. extremities or head). *Use of iterative reconstruction technique. DLP: 1329 mGy-cm FINDINGS: There is no evidence of acute intracranial hemorrhage or territorial infarction. No abnormal mass effect or midline shift is seen. Pymb-ie-vaokw matter differentiation is well preserved. No extra-axial fluid collections are identified. The ventricles are normal in size. There is no abnormal attenuation within the brain parenchyma. The osseous structures and soft tissues are normal. The mastoid air cells and visualized portions of the paranasal sinuses are well aerated. CT/CT head/brain wo con IMPRESSION: No acute intracranial process seen.
== END 2022-01-21 08:11 | disposition home or self-care (01) ==
LOC: HO.CT 08:10
PROVIDERS: Visit Provider Internal Medicine Medical Oncology
DX: R56.9 Unspecified convulsions (principal); R59.0 Localized enlarged lymph nodes
CPT/HCPCS: 70450; 70491